=== PATIENT | male | born 1975 | race Caucasian/White ===

== ENCOUNTER 2020-07-16 15:32 | Outpatient (CLI) | payer SELFPAY | END 2020-07-16 15:33 | disposition home or self-care (01) | LOC: CTENTCT 15:32 | PROVIDERS: ATTEND Otolaryngology Plastic Surgery within the Head & Neck | DX: J32.8 Other chronic sinusitis (principal) | CPT/HCPCS: 70486 ==

== ENCOUNTER 2021-03-10 16:53 | Outpatient (CLI) | payer OTHER ==
[2021-03-11 18:06] LABS: SARS-CoV-2 PCR by NAA Not Detected (NotDetected)
== END 2021-03-10 16:54 | disposition home or self-care (01) ==
LOC: LABBT 16:53
PROVIDERS: ATTEND Otolaryngology Plastic Surgery within the Head & Neck
DX: Z01.818 Encounter for other preprocedural examination (principal); Z20.822 Contact with and (suspected) exposure to COVID-19
CPT/HCPCS: 93005; 93010; U0003; U0005

== ENCOUNTER 2021-03-12 09:29 | Day surgery (SDC) | payer OTHER ==
[2021-03-05 13:19] VITALS: BMI 26.4
[2021-03-12] MEDS ORDERED: AFRIN NASAL MIST 15 ML BOT ONE (09:49)
[2021-03-12] MEDS ORDERED: Bacitracin Zinc Ointment 30 gm TUBE ONE (10:32)
[2021-03-12] MEDS ORDERED: Oxymetazoline HCl 0.05% (30 ML BOT) ONE (10:32)
[2021-03-12] MEDS ORDERED: Xylocaine 1% w/ Epi 1:100K 10 ML VIAL ONE (10:32)
[2021-03-12] MEDS ORDERED: Midazolam HCl 2 mg/2 ml Vial ONE (10:51)
[2021-03-12] MEDS ORDERED: Acetaminophen 500 MG TAB ONE (11:08)
[2021-03-12] MEDS ORDERED: Fentanyl 250 MCG/5 ML VIAL ONE (11:21)
[2021-03-12] MEDS ORDERED: PROPOFOL 200 MG/20 ML VIAL ONE (11:33)
[2021-03-12] MEDS ORDERED: Ondansetron PF 4 MG/2 ML Vial ONE (11:33)
[2021-03-12] MEDS ORDERED: Dexamethasone 20 MG/5 ML VIAL ONE (11:33)
[2021-03-12] MEDS ORDERED: Rocuronium Bromide 10 MG/ML (10ML VIAL) ONE (11:33)
[2021-03-12] MEDS ORDERED: Lidocaine 1% PF 5 ML VIAL ONE (11:33)
[2021-03-12] MEDS ORDERED: Meperidine HCl/PF 25 MG/ML VIAL ONE (12:21)
== END 2021-03-12 13:55 | disposition home or self-care (01) ==
LOC: SDC 09:29
PROVIDERS: ATTEND Otolaryngology Plastic Surgery within the Head & Neck
PROC: 099R8ZZ Drainage of Left Maxillary Sinus, Via Natural or Artificial Opening Endoscopic (ICD-10-PCS; principal; 2021-03-12)
PROC: 099X8ZZ Drainage of Left Sphenoid Sinus, Via Natural or Artificial Opening Endoscopic (ICD-10-PCS; principal; 2021-03-12)
PROC: 09BL8ZZ Excision of Nasal Turbinate, Via Natural or Artificial Opening Endoscopic (ICD-10-PCS; principal; 2021-03-12)
PROC: 09BS8ZZ Excision of Right Frontal Sinus, Via Natural or Artificial Opening Endoscopic (ICD-10-PCS; principal; 2021-03-12)
PROC: 099Q8ZZ Drainage of Right Maxillary Sinus, Via Natural or Artificial Opening Endoscopic (ICD-10-PCS; principal; 2021-03-12)
PROC: 09SM4ZZ Reposition Nasal Septum, Percutaneous Endoscopic Approach (ICD-10-PCS; principal; 2021-03-12)
PROC: 09DV4ZZ Extraction of Left Ethmoid Sinus, Percutaneous Endoscopic Approach (ICD-10-PCS; principal; 2021-03-12)
PROC: 09BT8ZZ Excision of Left Frontal Sinus, Via Natural or Artificial Opening Endoscopic (ICD-10-PCS; principal; 2021-03-12)
PROC: 099W8ZZ Drainage of Right Sphenoid Sinus, Via Natural or Artificial Opening Endoscopic (ICD-10-PCS; principal; 2021-03-12)
PROC: 09DU4ZZ Extraction of Right Ethmoid Sinus, Percutaneous Endoscopic Approach (ICD-10-PCS; principal; 2021-03-12)
DX: J32.9 Chronic sinusitis, unspecified (principal); J34.2 Deviated nasal septum; J34.3 Hypertrophy of nasal turbinates; J34.89 Other specified disorders of nose and nasal sinuses; H69.80 Other specified disorders of Eustachian tube, unspecified ear; F17.290 Nicotine dependence, other tobacco product, uncomplicated; Z79.899 Other long term (current) drug therapy; Z88.5 Allergy status to narcotic agent
CPT/HCPCS: J1100; J2175; J2250; J2405; J2704; J3010